=== PATIENT | female | born 1975 | race Caucasian/White ===

== ENCOUNTER → 2017-05-09 | Outpatient (CLI) | payer BC ==
[2013-10-21 17:36] VITALS: BP 125/67
--- NOTE | 2017-05-10 10:14 | MG ---
HISTORY: Screening Study: Bilateral digital screening mammography with CAD Comparison: June 02, 2014 and September 14, 2015 Technique: Cc and MLO views of both breasts were obtained. Findings: Scattered fibroglandular parenchyma is noted without suspicious interval change. There is no new or d eveloping mass, architectural distortion, or clustered pleomorphic microcalcifications. There is no s kin thickening or nipple retraction. No pathologic axillary lymphadenopathy is identified. Benign roberto cifications are noted. IMPRESSION: No mammographic evidence of malignancy. BI-RADS 2. Benign findings. Yearly mammographic screening is recommended. * 0 (ZERO) - ASSESSMENT INCOMPLETE; ADDITIONAL IMAGING IS NEEDED. * 1/1 (ONE) - NEGATIVE. * 2/II (TWO) - BENIGN FINDINGS. * 3/III (THREE) - PROBABLY BENIGN FINDING; SHORT INTERVAL FOLLOW-UP SUGGESTED. * 4/IV (FOUR) - SUSPICIOUS ABNORMALITY; BIOPSY SHOULD BE CONSIDERED. * 5/V (FIVE) - HIGHLY SUSPICIOUS OF MALIGNANCY; BIOPSY SHOULD BE PERFORMED. * 6/ (SIX) - KNOWN MALIGNANCY. A NEGATIVE X-RAY REPORT SHOULD NOT DELAY BIOPSY IF A DOMINANT OR CLINICALLY SUSPICIOUS MASS IS PRESENT; 4 TO 8 PERCENT OF CANCERS ARE NOT IDENTIFIED BY X-RAY. A NEGA TIVE REPORT MAY REINFORCE THE CLINICAL IMPRESSION. ADENOSIS AND DENSE BREASTS MAY OBSCURE AN UNDERLY ING NEOPLASM. Reported By:
== END ==
LOC: RAD 09:58
PROVIDERS: ATTEND Obstetrics & Gynecology
DX: Z01.419 Encounter for gynecological examination (general) (routine) without abnormal findings (principal); Z12.31 Encounter for screening mammogram for malignant neoplasm of breast
CPT/HCPCS: 77067

== ENCOUNTER → 2017-08-28 | Outpatient (CLI) | payer BC ==
[2013-10-21 17:36] VITALS: BP 125/67
--- NOTE | 2017-08-29 06:53 | RAD ---
HISTORY: Cough Study: Chest PA and lateral Comparison: 05/24/2011, report Findings: The heart is within normal limits in size. The lauro are normal. The lung anderson are clear. No pleural effusions are identified. The bony thorax is unremarkable. IMPRESSION: No significant abnormality identified Reported By:
== END ==
LOC: RAD 17:36
PROVIDERS: ATTEND Internal Medicine
DX: R05 Cough (principal)
CPT/HCPCS: 71046

== ENCOUNTER 2019-10-21 16:24 | Observation (INO) ==
--- NOTE | 2019-10-21 17:45 | RAD ---
CHEST, PA/LAT ADULTHistory: CHEST PAINComparison: NoneFindings: Cardiac silhouette is normal in size. No acute alveolar infiltrate or effusion is identified. No pneumothorax.Impression: No acute cardiopulmonary abnormality.Electronically signed by: IDRIS POMPA (Oct 21, 2019 17:44:31)
[2019-10-21 17:54] LABS: BASOPHILS % (AUTO) 0.3 % (0.2-1.0); EOSINOPHILS # (AUTO) 0.1 x10^3/uL (0.0-0.2); EOSINOPHILS % (AUTO) 0.5 % (0.9-2.9); HEMATOCRIT 43.5 % (36.0-47.0); HEMOGLOBIN 14.6 g/dL (12.0-16.0); LYMPHOCYTES % (AUTO) 18.9 % (21.0-51.0); MEAN CORPUSCULAR HEMOGLOBIN 30.8 pg (27.0-34.0); MEAN CORPUSCULAR HGB CONC 33.7 g/dL (33.0-35.0); MEAN CORPUSCULAR VOLUME 91.4 fL (80.0-100.0); MEAN PLATELET VOLUME 7.1 fL (7.4-11.0); MONOCYTES # (AUTO) 0.6 x10^3/uL (0.3-0.8); MONOCYTES % (AUTO) 5.8 % (0.0-13.0); NEUTROPHILS # (AUTO) 7.8 x10^3/uL (2.2-4.8); NEUTROPHILS % (AUTO) 74.5 % (42.0-75.0); PLATELET COUNT 384 X10^3/uL (150.0-450.0); RED BLOOD COUNT 4.76 X10^6/uL (3.5-5.4); RED CELL DISTRIBUTION WIDTH 13.6 % (11.6-16.5); WHITE BLOOD COUNT 10.4 X10^3/uL (3.6-10.0)
[2019-10-21 18:04] LABS: BLOOD UREA NITROGEN 10 mg/dL (7-18); CALCIUM 9.4 mg/dL (8.5-10.1); CARBON DIOXIDE 26.5 mmol/L (21-32); CHLORIDE 102 mmol/L (98-107); COR NA(FOR HYPERGLY) 139 mmol/L (136-145); CREATININE 0.73 mg/dL (0.55-1.02); SODIUM 139 mmol/L (136-145); TROPONIN I < 0.02 ng/mL (0-1.5); eGFR NON BLACK RACES > 60 (>60)
[2019-10-21 18:13] LABS: ALANINE AMINOTRANSFERASE 32 Units/L (12-78); ALBUMIN 4.1 g/dL (3.4-5.0); ALKALINE PHOSPHATASE 130 Units/L (46-116); ASPARTATE AMINO TRANSFERASE 20 Units/L (15-37); CKMB % 1.6 % (<4); CREATINE KINASE 64 Units/L (26-192); CREATINE KINASE MB < 1.0 ng/mL (0-4.0); TOTAL PROTEIN 8.2 g/dL (6.4-8.2)
[2019-10-21 20:17] VITALS: BMI 43.6
[2019-10-21] MEDS ORDERED: TYLENOL 325 MG TAB PO PRN (22:20)
[2019-10-21] MEDS ORDERED: TYLENOL 325 MG TAB PO ONE (22:33)
[2019-10-21 23:16] LABS: CKMB % 1.5 % (<4); CREATINE KINASE 67 Units/L (26-192); CREATINE KINASE MB < 1.0 ng/mL (0-4.0); TROPONIN I < 0.02 ng/mL (0-1.5)
[2019-10-22 09:08] LABS: BASOPHILS % (AUTO) 0.3 % (0.2-1.0); EOSINOPHILS # (AUTO) 0.1 x10^3/uL (0.0-0.2); EOSINOPHILS % (AUTO) 1.5 % (0.9-2.9); HEMATOCRIT 40.2 % (36.0-47.0); HEMOGLOBIN 13.4 g/dL (12.0-16.0); LYMPHOCYTES # (AUTO) 2.1 X10^3/uL (1.3-2.9); LYMPHOCYTES % (AUTO) 25.4 % (21.0-51.0); MEAN CORPUSCULAR HEMOGLOBIN 30.6 pg (27.0-34.0); MEAN CORPUSCULAR HGB CONC 33.4 g/dL (33.0-35.0); MEAN CORPUSCULAR VOLUME 91.6 fL (80.0-100.0); MEAN PLATELET VOLUME 7.5 fL (7.4-11.0); MONOCYTES # (AUTO) 0.6 x10^3/uL (0.3-0.8); MONOCYTES % (AUTO) 6.9 % (0.0-13.0); NEUTROPHILS # (AUTO) 5.4 x10^3/uL (2.2-4.8); NEUTROPHILS % (AUTO) 65.9 % (42.0-75.0); PLATELET COUNT 320 X10^3/uL (150.0-450.0); RED BLOOD COUNT 4.39 X10^6/uL (3.5-5.4); RED CELL DISTRIBUTION WIDTH 13.4 % (11.6-16.5); WHITE BLOOD COUNT 8.2 X10^3/uL (3.6-10.0)
[2019-10-22 09:13] LABS: ALANINE AMINOTRANSFERASE 27 Units/L (12-78); ALBUMIN 3.5 g/dL (3.4-5.0); ALKALINE PHOSPHATASE 111 Units/L (46-116); ASPARTATE AMINO TRANSFERASE 17 Units/L (15-37); BLOOD UREA NITROGEN 10 mg/dL (7-18); CALCIUM 9.2 mg/dL (8.5-10.1); CARBON DIOXIDE 26.7 mmol/L (21-32); CHLORIDE 104 mmol/L (98-107); CREATININE 0.66 mg/dL (0.55-1.02); SODIUM 142 mmol/L (136-145); TOTAL PROTEIN 7.1 g/dL (6.4-8.2); eGFR NON BLACK RACES > 60 (>60)
[2019-10-22 09:58] LABS: CHOL/HDL RATIO 5.4 (0.0-5.0); CHOLESTEROL 210 mg/dL (0-200); CKMB % 1.5 % (<4); CREATINE KINASE 65 Units/L (26-192); CREATINE KINASE MB < 1.0 ng/mL (0-4.0); HDL CHOLESTEROL 39 mg/dL (40-60); TRIGLYCERIDES 279 mg/dL (0-150); TROPONIN I < 0.02 ng/mL (0-1.5)
[2019-10-22] MEDS ORDERED: LOVENOX INJ 40 MG SYR SC SCH (13:00)
[2019-10-22] MEDS ORDERED: PROTONIX INJ 40 MG VIAL IVP SCH (14:00)
[2019-10-22] MEDS ORDERED: PROTONIX INJ 40 MG VIAL ONE (14:07)
[2019-10-22] MEDS ORDERED: TORADOL 30 MG VIAL IVP ONE (14:54)
[2019-10-22] MEDS ORDERED: TORADOL 30 MG VIAL ONE (15:03)
[2019-10-22 16:26] VITALS: BP 145/71
--- NOTE | 2019-10-22 18:24 | DR.CARTERS ---
Short Stay Summary - Discharge Medications Discharge Medications: Home Medication List amlodipine 5 mg PO DAILY 10/22/19 [History] aspirin [Aspir-81] 81 mg PO ONCE #30 tab 10/22/19 [Rx] esomeprazole magnesium 40 mg PO BID 10/22/19 [History] estradiol 2 mg PO DAILY 10/22/19 [History] levocetirizine 5 mg PO HS 10/22/19 [History] rosuvastatin [Crestor] 10 mg PO ONCE #30 tab 10/22/19 [Rx] Prescriptions: aspirin [Aspir-81] HAZEL HERNANDEZ rosuvastatin [Crestor] HAZEL HERNANDEZ - Discharge Plan Disposition: HOME, SELF-CARE Condition: Stable Prescriptions: aspirin [Aspir-81] 81 mg PO ONCE #30 tab rosuvastatin [Crestor] 10 mg PO ONCE #30 tab - Follow up/Referrals Follow up/Referrals: HAZEL HERNANDEZ [Nurse Practitioner] - 10/29/19 2:30 pm Vu Whitehead [STAFF PHYSICIAN] - (Office will call you with appointment date and time.) - Instructions Instructions: Hand Washing, [id number], Nonspecific Chest Pain, [id number], Chest Wall Pain, Bpon-pa-Blak, Hypertension, [id number], Form - Blood Pressure Record Sheet, High Triglycerides Eating Plan, High Cholesterol Additional Instructions: CARDIAC WORK UP WITH DR WHITEHEAD IN [place] OR [place] PER PT REQUEST KEEP BP DIARY START ASPIRIN AND STATIN REST, COVID PRECAUTIONS RETURN TO ER IF CHEST PAIN RETURNESS OR DEVELOPS SOB Forms: Precautions for COVID19, Patient Portal, Social Distancing
== END 2019-10-22 14:45 | disposition home or self-care (01) ==
LOC: OBS → MERGE 16:54 → MED/SURG 19:03
PROVIDERS: ADMIT Internal Medicine; ATTEND Internal Medicine
DX: R11.0 Nausea; R07.89 Other chest pain; Z79.899 Other long term (current) drug therapy; R51 Headache; I10 Essential (primary) hypertension; G25.81 Restless legs syndrome; E66.09 Other obesity due to excess calories; M50.30 Other cervical disc degeneration, unspecified cervical region; K21.9 Gastro-esophageal reflux disease without esophagitis; R94.31 Abnormal electrocardiogram [ECG] [EKG]
CPT/HCPCS: 36415; 71020; 71046; 80053; 80061; 82550; 82553; 84484; 85025; 85378; 87635; 93005; 94760; A4222; C9113; G0378; J1885; J3490